=== PATIENT | male | born 1970 | race Caucasian/White ===

== ENCOUNTER 2016-10-26 04:28 | Inpatient (IN) | payer OTHER ==
[~2016-10-26] VITALS: Ht 175.3 cm; Wt 86.5 kg
[~2016-10-26 04:28] MED LIST: HYDR-902 PO; IBUP800T25 PO
[2016-10-26] MEDS ORDERED: SOD CHLORIDE 0.9% 1,000 ML IV STA (06:52)
[2016-10-26] MEDS ORDERED: KETOROLAC 15 MG INJ IV STA (06:52)
[2016-10-26] MEDS ORDERED: ONDANSETRON 4 MG INJ IV PRN ×3 (07:00→12:30)
[2016-10-26] MEDS ORDERED: ACETAMINOPHEN 325 MG TAB PO ONE (07:00)
[2016-10-26] MEDS ORDERED: morphine 4 MG/ML VIAL IV PRN (07:00)
--- NOTE | 2016-10-26 07:07 | ERA ---
ER Documentation Chief Complaint Date/Time DATE: 10/26/16 TIME: 06:59 Chief Complaint AP x10 days, Chronic Diarrhea, fever x10 days. [place] @2000 HPI 46-year-old male with no significant previous medical history ambulatory to the ED complaining of a one-week history of abdominal pain, diarrhea, body aches and fevers. He was well until approximately a week ago when he began to have body aches, fevers and generalized malaise. Subsequently developed profuse, watery, nonbloody, nonmucoid diarrhea approximately 3-4 times a day with occasional nighttime incontinence. Denies recent travel or spelled food exposure. Multiple family members with URI type viral illnesses moderate to severe, intermittent, sharp and crampy, nonradiating left lower quadrant pain. No pain now. No relieving or exacerbating factors. Denies dysuria, polyuria, hematuria or flank pain. No testicular pain or swelling. Denies chest pain or palpitations. No shortness of breath or cough. ROS All systems reviewed and are negative except as per history of present illness. Medications Home Meds Discontinued Scripts Hydrocodone/Acetaminophen ([place] 10-325 Tablet) 1 Each Tablet, 1 EACH PO TID, # 20 TAB Prov:GABY RICARDO PA-C 05/21/16 Ibuprofen* (Motrin*) 800 Mg Tab, 800 MG PO Q6, #30 TAB Prov:GABY RICARDO PA-C 05/21/16 Allergies Allergies: Coded Allergies: No Known Allergy (Unverified , 10/26/16) PMhx/Soc Reviewed in chart. As per HPI per History of Surgery: No Anesthesia Reaction: No Hx Neurological Disorder: No Hx Respiratory Disorders: No Hx Cardiac Disorders: No Hx Psychiatric Problems: No Hx Miscellaneous Medical Probl: No Hx Alcohol Use: No Hx Substance Use: No Hx Tobacco Use: No FmHx Father: of an CT at the age of 74. No family history of cancer or diabetes. Physical Exam Vitals Vital Signs Date Time Temp Pulse Resp B/P Pulse Ox O2 Delivery O2 Flow Rate FiO2 10/26/16 11:03 80 18 117/75 99 Room Air 10/26/16 06:17 100.9 95 16 140/89 98 Room Air 10/26/16 04:33 101.4 108 20 129/80 95 Physical Exam Const: Alert, no acute distress. Head: Atraumatic Eyes: Normal Conjunctiva. Anicteric. ENT: Normal External Ears, Nose and Mouth. Neck: Full range of motion. Nontender. Resp: Breath sounds are equal and clear to auscultation bilaterally Cardio: Regular rate and rhythm, no murmurs Abd: Soft, nontender, mild distention. No rebound or guarding. No masses or abnormal pulsations. Skin: No petechiae or rashes Back: No midline or CVA tenderness Ext: No cyanosis, or edema Neur: Awake and alert. Cranial nerves II through XII are grossly intact. No focal deficit observed. Psych: Normal Mood and Affect. The patient does not appear anxious or depressed. Result Diagram: 10/26/16 0710 10/26/16 0710 Results 24 hrs Laboratory Tests Test 10/26/16 07:10 10/26/16 08:05 Alanine Aminotransferase (ALT/SGPT) 83IU/L Albumin 3.9g/dl Albumin/Globulin Ratio 0.97 Alkaline Phosphatase 159IU/L Anion Gap 18 Aspartate Amino Transf (AST/SGOT) 58IU/L Basophils # 0.010^3/ul Basophils % 0.1% Blood Urea Nitrogen 8mg/dl Calcium Level 9.1mg/dl Carbon Dioxide Level 27mmol/L Chloride Level 99mmol/L Creatinine 0.94mg/dl Direct Bilirubin 0.00mg/dl Eosinophils # 0.110^3/ul Eosinophils % 0.8% Globulin 4.00g/dl Glucose Level 108mg/dl Hematocrit 40.6% Hemoglobin 14.2g/dl Indirect Bilirubin 0.2mg/dl Lipase 64U/L Lymphocytes # 0.710^3/ul Lymphocytes % 9.3% Mean Corpuscular Hemoglobin 31.3pg Mean Corpuscular Hemoglobin Concent 34.9g/dl Mean Corpuscular Volume 89.6fl Mean Platelet Volume 8.3fl Monocytes # 0.910^3/ul Monocytes % 11.5% Neutrophils # 5.910^3/ul Neutrophils % 78.3% Nucleated Red Blood Cells # 0.010^3/ul Nucleated Red Blood Cells % 0.0/100WBC Platelet Count 03496^3/UL Potassium Level 3.8mmol/L Red Blood Count 4.5410^6/ul Red Cell Distribution Width 13.2% Sodium Level 140mmol/L Total Bilirubin 0.2mg/dl Total Protein 7.9g/dl White Blood Count 7.510^3/ul Urine Bacteria FEW Urine Bilirubin NEGATIVE Urine Clarity CLEAR Urine Color YELLOW Urine Epithelial Cells FEW Urine Glucose NEGATIVE% Urine Hemoglobin 3+ Urine Ketones NEGATIVE Urine Leukocyte Esterase NEGATIVE Urine Microscopic RBC >200/HPF Urine Microscopic WBC 2-5/HPF Urine Nitrite NEGATIVE Urine Specific [place] 1.010 Urine Total Protein TRACE Urine Urobilinogen 2.0 E.U./dL Urine pH 7.0 Current Medications Medications (Trade) Dose Ordered Sig/Tran Route PRN Reason Start Time Stop Time Status Last Admin Dose Admin Sodium Chloride (NS) 1,000 ml @ 1,000 mls/hr Q1H STAT IV 10/26/16 06:52 10/26/16 07:51 DC 10/26/16 07:11 Morphine Sulfate (morphine) 4 mg ONCE PRN IV Pain 10/26/16 07:00 10/26/16 07:16 Ondansetron HCl (Zofran Inj) 4 mg ONCE PRN IV Nausea 10/26/16 07:00 10/26/16 07:16 Ketorolac Tromethamine (Toradol) 15 mg ONCE STAT IV 10/26/16 06:52 10/26/16 07:00 DC 10/26/16 07:11 Acetaminophen (Tylenol Tab) 650 mg ONCE ONCE PO 10/26/16 07:00 10/26/16 07:01 DC 10/26/16 07:11 IV Flush 10 ml 10 ml STK-MED ONCE .ROUTE 10/26/16 08:26 10/26/16 08:27 DC Sodium Chloride (NS) 100 ml @ ud STK-MED ONCE .ROUTE 10/26/16 08:26 10/26/16 08:27 DC Iohexol 150 ml 150 ml STK-MED ONCE .ROUTE 10/26/16 08:26 10/26/16 08:27 DC Ceftriaxone Sodium 50 ml @ 100 mls/hr ONCE ONCE IVPB 10/26/16 10:00 10/26/16 10:29 DC 10/26/16 10:08 Azithromycin (Zithromax 500mg/ NS (Pmx)) 250 ml @ 250 mls/hr ONCE ONCE IVPB 10/26/16 10:00 10/26/16 10:59 DC 10/26/16 11:02 Ondansetron HCl (Zofran Inj) 4 mg BRIDGE ORDER PRN IV NAUSEA AND/OR VOMITING 10/26/16 11:30 10/27/16 11:29 Acetaminophen (Tylenol Tab) 650 mg ER BRIDGE PRN PO MILD PAIN/FEVER 10/26/16 11:30 10/27/16 11:29 IMAGING: PROCEDURE: CT of the abdomen and pelvis CLINICAL INDICATION: Abdominal pain TECHNIQUE: The study was performed utilizing a GE [employer] 64-slice multidetector CT scanner. Direct spiral axial sections were obtained through the abdomen and pelvis with intravenous contrast. After administration of 85 cc of Omnipaque-300, postcontrast images were obtained. Coronal and sagittal reformatted images were performed. The CTDI vol is 10.92 mGy and the DLP is 672.25 mGy-cm. The images were reviewed on a PACS workstation. COMPARISON: No prior studies are available for comparison. FINDINGS: CT abdomen: Dense consolidation in the right lower lobe is seen with a small focal area of consolidation in the left lower lobe. The heart is not enlarged. No pleural or pericardial effusion is seen. The liver is mildly enlarged measuring 19.6 cm in size. No focal liver lesions or intrahepatic biliary dilatation is seen. The gallbladder is normal. No common bile duct dilatation is seen. The spleen measures 4.9 cm. The spleen, pancreas, and adrenal glands are otherwise unremarkable in appearance. The kidneys are normal in size and contour enhance normally. A 2 mm nonobstructing stone is seen in the lower pole of the right kidney. No evidence of hydronephrosis or nephrolithiasis is seen. The stomach is unremarkable. The small and large bowel are unremarkable in course and caliber. A normal appendix is identified. No enlarged lymph nodes or fluid collections are seen. The aorta is normal in caliber. CT pelvis: No pelvic mass, adenopathy, or focal fluid collection is seen. There is no free fluid. The urinary bladder is normal. The pelvic organs are unremarkable. No osseous lesions are seen. Degenerative changes in the lower lumbar spine are seen. IMPRESSION: 1. Dense consolidation in the right lower lobe with a small focal area consolidation left lower lobe consistent with pneumonia. Continued chest x-ray follow-up until complete resolution is recommended. 2. Mild hepatosplenomegaly 3. 2 mm nonobstructing right renal stone. RPTAT: HPNM Physician Jazmin Date Time Electronically viewed and signed by Physician Jazmin on 10/26/2016 08 :51 / PROCEDURE: XR Chest. CLINICAL INDICATION: Femur and stomach pains. TECHNIQUE: Single frontal view of the chest was obtained COMPARISON: CT scan abdomen pelvis 10/26/2016. FINDINGS: There are infiltrates in the right lower lobe. The heart is upper limits of normal for size. The less aorta pulmonary vasculature and pleural spaces are normal. IMPRESSION: 1. Right lower lobe pneumonia. RPTAT:AAJJ Jose Robles Physician Date Time Electronically viewed and signed by Physician Singh on 10/26/2016 09:50 JM/ Procedures/MDM DOCUMENTS REVIEWED: ED nurse prior ED ED COURSE: IV saline lock. Normal saline 1 L. Tylenol 650 mg orally and Toradol 15 mg IV. Rocephin 1 g IV piggyback/azithromycin 1 g IV piggyback MEDICAL DECISION MAKIN-year-old male with no significant previous medical history ambulatory to the ED complaining of a one-week history of abdominal pain , diarrhea, body aches and fevers. CT of the abdomen and pelvis unremarkable for intra-abdominal pathology except for nonobstructing right ureteral stone which is not consistent with the patient's presentation as his pain is mostly on the left but does show right lower lobe infiltrate was confirmed by chest x- ray. He has no respiratory symptoms or cough. Presentation suspicious for Legionella especially considering his elevated LFTs. Patient be admitted to [facility] for further evaluation and management. Counseled patient and family regarding diagnostic workup, diagnosis and need for followup. Understands to return to ED if symptoms recur, worsen or any other concerns. Departure Diagnosis: Primary Impression: Right lower lobe pneumonia Qualified Code: J18.9 - Pneumonia of right lower lobe due to infectious organism Condition: Serious BILLY BALDERRAMA MD Oct 26, 2016 07:07
[2016-10-26 07:38] LABS: BASOPHILS % 0.1 % (0.0-2.0); EOSINOPHILS # 0.1 10^3/ul (0.0-0.5); EOSINOPHILS % 0.8 % (0.0-7.0); HEMATOCRIT 40.6 % (42.0-52.0); HEMOGLOBIN 14.2 g/dl (14.0-18.0); LYMPHOCYTES # 0.7 10^3/ul (0.8-2.9); LYMPHOCYTES % 9.3 % (15.0-51.0); MEAN CORPUSCULAR HEMOGLOBIN 31.3 pg (29.0-33.0); MEAN CORPUSCULAR HGB CONC 34.9 g/dl (32.0-37.0); MEAN CORPUSCULAR VOLUME 89.6 fl (82.0-101.0); MEAN PLATELET VOLUME 8.3 fl (7.4-10.4); MONOCYTE # 0.9 10^3/ul (0.3-0.9); MONOCYTES % 11.5 % (0.0-11.0); NEUTROPHIL # 5.9 10^3/ul (1.6-7.5); NEUTROPHILS % 78.3 % (39.0-77.0); PLATELET COUNT 249 10^3/UL (140-440); RED BLOOD COUNT 4.54 10^6/ul (4.70-6.10); RED CELL DISTRIBUTION WIDTH 13.2 % (11.5-14.5); UNCORRECTED WBC 7.5 10^3/ul (4.8-10.8); WHITE BLOOD COUNT 7.5 10^3/ul (4.8-10.8)
[2016-10-26 07:55] LABS: CONDITION 1
[2016-10-26 07:59] LABS: ALBUMIN 3.9 g/dl (3.3-4.9)
[2016-10-26 08:00] LABS: POTASSIUM 3.8 mmol/L (3.5-5.1)
[2016-10-26 08:02] LABS: ALBUMIN/GLOBULIN RATIO 0.97; BILIRUBIN,INDIRECT 0.2 mg/dl (0-1.1); BILIRUBIN,TOTAL 0.2 mg/dl (0.2-1.3); CREATININE 0.94 mg/dl (0.61-1.24); TOTAL PROTEIN 7.9 g/dl (6.1-8.1)
[2016-10-26 08:03] LABS: CALCIUM 9.1 mg/dl (8.4-10.2)
[2016-10-26] MEDS ORDERED: IOHEXOL 300MG/ML 150 ML BTL ONE (08:26)
[2016-10-26] MEDS ORDERED: SOD CHLORIDE 0.9% 100 ML ONE (08:26)
[2016-10-26 08:31] LABS: ADD UMIC YES; URINE BILIRUBIN (Dip) NEGATIVE (NEGATIVE); URINE BLOOD (Dip) 3+ (NEGATIVE); URINE COLOR YELLOW (YELLOW); URINE GLUCOSE (Dip) NEGATIVE (NEGATIVE); URINE KETONES (Dip) NEGATIVE (NEGATIVE); URINE LEUKOCYTE ESTERASE (Dip) NEGATIVE (NEGATIVE); URINE NITRITE (Dip) NEGATIVE (NEGATIVE); URINE TOTAL PROTEIN (Dip) TRACE (NEGATIVE); URINE UROBILINOGEN (Dip) 2.0 E.U./dL (0.1-1.0)
[2016-10-26 08:45] LABS: BACTERIA,URINE FEW; URINE RBCS >200 /HPF (0)
--- NOTE | 2016-10-26 08:51 | RADRPT ---
PROCEDURE: CT of the abdomen and pelvis CLINICAL INDICATION: Abdominal pain TECHNIQUE: The study was performed utilizing a GE [employer] 64-slice multidetector CT scanner. Dir ect spiral axial sections were obtained through the abdomen and pelvis with intravenous contrast. Af ter administration of 85 cc of Omnipaque-300, postcontrast images were obtained. Coronal and sagitt al reformatted images were performed. The CTDI vol is 10.92 mGy and the DLP is 672.25 mGy-cm. The i mages were reviewed on a PACS workstation. COMPARISON: No prior studies are available for comparison. FINDINGS: CT abdomen: Dense consolidation in the right lower lobe is seen with a small focal area of consolida tion in the left lower lobe. The heart is not enlarged. No pleural or pericardial effusion is seen . The liver is mildly enlarged measuring 19.6 cm in size. No focal liver lesions or intrahepatic bili rae dilatation is seen. The gallbladder is normal. No common bile duct dilatation is seen. The sple en measures 4.9 cm. The spleen, pancreas, and adrenal glands are otherwise unremarkable in appearan ce. The kidneys are normal in size and contour enhance normally. A 2 mm nonobstructing stone is see n in the lower pole of the right kidney. No evidence of hydronephrosis or nephrolithiasis is seen. The stomach is unremarkable. The small and large bowel are unremarkable in course and caliber. A n ormal appendix is identified. No enlarged lymph nodes or fluid collections are seen. The aorta is n ormal in caliber. CT pelvis: No pelvic mass, adenopathy, or focal fluid collection is seen. There is no free fluid. The urinary bladder is normal. The pelvic organs are unremarkable. No osseous lesions are seen. De generative changes in the lower lumbar spine are seen. IMPRESSION: 1. Dense consolidation in the right lower lobe with a small focal area consolidation left lower lob e consistent with pneumonia. Continued chest x-ray follow-up until complete resolution is recommend ed. 2. Mild hepatosplenomegaly 3. 2 mm nonobstructing right renal stone. RPTAT: HPNM Dusty Fernandes Physician Date Time Electronically viewed and signed by Dusty Fernandes, Physician on 10/26/2016 08:51 /
--- NOTE | 2016-10-26 09:50 | RADRPT ---
PROCEDURE: XR Chest. CLINICAL INDICATION: Femur and stomach pains. TECHNIQUE: Single frontal view of the chest was obtained COMPARISON: CT scan abdomen pelvis 10/26/2016. FINDINGS: There are infiltrates in the right lower lobe. The heart is upper limits of normal for size. The l ess aorta pulmonary vasculature and pleural spaces are normal. IMPRESSION: 1. Right lower lobe pneumonia. RPTAT:AAJJ Physician Singh Date Time Electronically viewed and signed by Jose Robles Physician on 10/26/2016 09:50 NEDA/
[2016-10-26] MEDS ORDERED: AZITHROMYCIN 500MG/NS (PMX) 250 ML IVPB ONE (10:00)
[2016-10-26] MEDS ORDERED: CEFTRIAXONE 1 GM/50 ML (PMX) 50 ML IVPB ONE (10:00)
[2016-10-26] MEDS ORDERED: ACETAMINOPHEN 325 MG TAB PO PRN (11:30)
[2016-10-26] MEDS ORDERED: HYDROCODONE/APAP (5/325) TAB PO PRN (12:30)
[2016-10-26] MEDS ORDERED: morphine 2 MG INJ IV PRN (12:30)
[2016-10-26] MEDS ORDERED: BISACODYL 10 MG SUPP PR PRN (12:30)
[2016-10-26] MEDS ORDERED: DOCUSATE SODIUM 100 MG CAP PO PRN (12:30)
[2016-10-26] MEDS ORDERED: NACL 0.9% 3 ML SYG IV SCH (12:30)
[2016-10-26] MEDS ORDERED: ACETAMINOPHEN 650 MG SUPP PR PRN (12:30)
[2016-10-26] MEDS ORDERED: MAGNESIUM HYDROXIDE 30ML CUP PO PRN (12:30)
--- NOTE | 2016-10-26 12:48 | HP ---
Date/Time of Note Date/Time of Note DATE: 10/26/16 TIME: 12:42 Assessment/Plan VTE Prophylaxis VTE Prophylaxis Intervention: SCD's Assessment/Plan Chief Complaint/Hosp Course Assessment and plan 1. Right lower lung lobe pneumonia. Continue antibiotics. Follow-up chest radiograph to assess for resolution 2. Abdominal pain. Patient was CT scan of the abdomen with acute intra- abdominal pathology. We'll follow-up on stool cultures. Analgesics as needed. We 'll provide with IV hydration. 3. Febrile secondary to #1. Antipyretics as needed 4. Mild transaminitis. Etiology unknown. Follow up on hepatitis panel. Admission process time is 40 minutes Discussed plan of care with Dr. Tucker Problems: HPI/ROS Admit Date/Time Admit Date/Time Hx of Present Illness This is a 46-year-old male with no past medical history who came to [facility] due to reports of abdominal pain with associated nonbloody diarrhea. Patient did report that his symptoms started about a week ago with abdominal pain on the left lower quadrant. He reports having subjective fevers and body aches. He did report having one sick contact being his son who had upper respiratory infection symptoms. Patient denied any chest pain or shortness of breath associated with his own symptoms. Due to worsening abdominal pain he came to [facility] for further evaluation. Upon further examination he did have chest x-ray that did show Findings consistent with right lower lobe pneumonia. Additionally patient also did have CT scan of his abdomen for his abdominal pain that did show dense consolidation in the right lower lobe with a small focal area consolidation of left lower lobe consistent with pneumonia. There is only seen mild hepatosplenomegaly and a 2 mm nonobstructing right renal stone. He was found to be febrile with temperature 101.4. No leukocytosis noted. He also had some mild transaminitis seen on his chemistry. Currently the patient remains alert and oriented. He does reports of having sharp left lower quadrant abdominal pain nonradiating. He still reports having diarrhea. We will evaluate him for the aforementioned issues. ROS 12 point review of systems obtained and entirely negative except that mentioned in history of present illness PMH/Family/Social Past Medical History Medical History: no pertinent history Exam/Review of Systems Vital Signs Vitals Vital Signs Date Time Temp Pulse Resp B/P Pulse Ox O2 Delivery O2 Flow Rate FiO2 10/26/16 11:03 80 18 117/75 99 Room Air 10/26/16 06:17 100.9 Exam Exam General: No acute signs or symptoms of distress Eyes: pupils equal round, Anicteric sclera Neck: Supple nontender, no JVD Cardiac: S1, S2 auscultated, regular rhythm and rate Pulmonary: No coarse rhonchi or breathing auscultated GI: Minimally tender upon palpation of left lower abdomen Extremities: No edema bilateral lower extremities Skin: Clean dry and intact Neurologic: Alert to person place and time and situation Labs Result Diagram: 10/26/16 0710 10/26/16 0710 Medications Medications Current Medications Morphine Sulfate (morphine) 4 mg ONCE PRN IV Pain Last administered on t 07:16; Admin Dose 4 MG; Start 10/26/16 at 07:00 Ondansetron HCl (Zofran Inj) 4 mg Q6H PRN IV NAUSEA AND/OR VOMITING; Start at 12:30 Acetaminophen (Tylenol Tab) 650 mg Q6H PRN PO PAIN LEVEL 1-3 OR FEVER; Start at 12:30 Acetaminophen (Tylenol Supp) 650 mg Q6H PRN [place] PAIN LEVEL 1-3 OR FEVER; Start 10/26/16 at 12:30 Acetaminophen/ Hydrocodone Bitart ([place] (5/325)) 1 tab Q6H PRN PO MODERATE PAIN LEVEL 4-6; Start 10/26/16 at 12:30 Acetaminophen/ Hydrocodone Bitart ([place] (5/325)) 2 tab Q6H PRN PO SEVERE PAIN LEVEL 7-10; Start 10/26/16 at 12:30 Morphine Sulfate (morphine) 2 mg Q4H PRN IV SEVERE PAIN LEVEL 7-10; Start 10/26 at 12:30 Docusate Sodium (Colace) 100 mg Q12H PRN PO CONSTIPATION; Start 10/26/16 at 12: 30 Magnesium Hydroxide (Milk Of Mag) 30 ml DAILY PRN PO CONSTIPATION; Start at 12:30 Bisacodyl (Dulcolax Supp) 10 mg DAILY PRN [place] CONSTIPATION; Start 10/26/16 at 12 :30 Pantoprazole 40 mg 40 mg DAILY@06 IV ; Start 10/27/16 at 06:00 Azithromycin 250 ml @ 250 mls/hr DAILY IVPB ; Start 10/27/16 at 09:00 Ceftriaxone Sodium (Rocephin) 50 ml @ 100 mls/hr Q24H IVPB ; Start 10/27/16 at 09:00 CLARE FERNANDEZ Oct 26, 2016 12:47
[2016-10-26] MEDS: HYDROCODONE/APAP (5/325) TAB PO PRN (13:24)
[2016-10-26] MEDS: SOD CHLORIDE 0.9% 1,000 ML IV SCH ×2 (13:26→23:16)
[2016-10-26 14:09] LABS: HAAIG REFLEX REFLEX FILED
[2016-10-26] MEDS ORDERED: IBUPROFEN 600 MG TAB PO ONE (14:30)
[2016-10-26 15:13] LABS: HEPATITIS B CORE ANTIBODY NEGATIVE (NEGATIVE)
[2016-10-26 18:31] VITALS: TEMP 98.7
[2016-10-26 20:00] VITALS: BP 118/74; PULSE 80; RESP 20; Ht 175.3 cm; Wt 86.5 kg
[2016-10-26] MEDS: ACETAMINOPHEN 325 MG TAB PO PRN (20:14)
[2016-10-27] MEDS: HYDROCODONE/APAP (5/325) TAB PO PRN ×2 (00:28→21:08)
[2016-10-27] MEDS: PANTOPRAZOLE 40 MG INJ IV SCH (05:32)
[2016-10-27] MEDS: ACETAMINOPHEN 325 MG TAB PO PRN ×2 (06:25→16:38)
[2016-10-27 07:51] LABS: ALBUMIN 3.4 g/dl (3.3-4.9)
[2016-10-27 07:52] LABS: POTASSIUM 4.1 mmol/L (3.5-5.1)
[2016-10-27 07:54] LABS: BILIRUBIN,INDIRECT 0.2 mg/dl (0-1.1); BILIRUBIN,TOTAL 0.2 mg/dl (0.2-1.3); CREATININE 0.76 mg/dl (0.61-1.24); TOTAL PROTEIN 6.8 g/dl (6.1-8.1)
[2016-10-27 07:55] LABS: CALCIUM 8.9 mg/dl (8.4-10.2); PHOSPHORUS 2.8 mg/dl (2.5-4.9)
[2016-10-27 07:56] LABS: CHOL/HDL RATIO 5.9 RATIO
[2016-10-27 08:27] LABS: T3 UPTAKE 40.8 % (23.5-40.5)
[2016-10-27 08:29] VITALS: BP 119/72; RESP 16
[2016-10-27 08:41] LABS: THYROID STIMULATING HORMONE 0.643 MIU/L (0.465-4.680)
[2016-10-27] MEDS ORDERED: CEFTRIAXONE 2 GM INJ IVPB SCH (09:00)
[2016-10-27] MEDS: SOD CHLORIDE 0.9% 1,000 ML IV SCH ×2 (09:30→18:18)
[2016-10-27] MEDS: CEFTRIAXONE 2 GM/NS 50 ML IVPB SCH (10:43)
[2016-10-27] MEDS: AZITHROMYCIN 500MG/NS (PMX) 250 ML IVPB SCH (12:06)
[2016-10-27 13:00] VITALS: BP 119/72; PULSE 70; RESP 20
--- NOTE | 2016-10-27 19:30 | PN ---
Date/Time of Note Date/Time of Note DATE: 10/27/16 TIME: 19:27 Assessment/Plan VTE Prophylaxis VTE Prophylaxis Intervention: SCD's Lines/Catheters IV Catheter Type (from Nrs): Peripheral IV Assessment/Plan Chief Complaint/Hosp Course Assessment and plan 1. Right lower lung lobe pneumonia. Continue antibiotics. check chiropractic teacher in am 2. Abdominal pain. Patient was CT scan of the abdomen with acute intra- abdominal pathology.stool cultures pending 3. Febrile secondary to #1. Antipyretics as needed 4. Mild transaminitis. Etiology unknown. Follow up on hepatitis panel. DISPO/PLAN: cont abx. awaiting stool cultures. d/c when medically stable Discussed plan of care with Dr. Tucker Problems: Subjective 24 Hr Interval Summary Free Text/Dictation no s.s of distress. reports less abd pain Exam/Review of Systems Vital Signs Vitals Vital Signs Date Time Temp Pulse Resp B/P Pulse Ox O2 Delivery O2 Flow Rate FiO2 10/27/16 13:00 96.8 70 20 119/72 95 Room Air Intake and Output 10/26/16 10/26/16 10/27/16 15:00 23:00 07:00 Intake Total 1000 ml 2000 ml Balance 1000 ml 2000 ml Exam General: No acute signs or symptoms of distress Eyes: pupils equal round, Anicteric sclera Neck: Supple nontender, no JVD Cardiac: S1, S2 auscultated, regular rhythm and rate Pulmonary: No coarse rhonchi or breathing auscultated GI: bowel sounds active. Extremities: No edema bilateral lower extremities Skin: Clean dry and intact Neurologic: Alert to person place and time and situation Results Result Diagram: 10/26/16 0710 10/27/16 0605 Results 24 hrs Laboratory Tests Test 10/27/16 06:05 Alanine Aminotransferase (ALT/SGPT) 64 Albumin 3.4 Albumin/Globulin Ratio 1.00 Alkaline Phosphatase 133 H Anion Gap 16 Aspartate Amino Transf (AST/SGOT) 38 Blood Urea Nitrogen 6 L Calcium Level 8.9 Carbon Dioxide Level 29 Chloride Level 102 Cholesterol Level 113 Cholesterol/HDL Ratio 5.9 Creatinine 0.76 Direct Bilirubin 0.00 Free Thyroxine Index 3.51 Globulin 3.40 H Glucose Level 100 HDL Cholesterol 19 L Hemoglobin A1c 5.2 Indirect Bilirubin 0.2 LDL Cholesterol, Calculated 77 Magnesium Level 2.0 Phosphorus Level 2.8 Potassium Level 4.1 Sodium Level 143 Thyroid Stimulating Hormone (TSH) 0.643 Thyroxine (T4) 8.6 Total Bilirubin 0.2 Total Protein 6.8 # Triglycerides Level 83 Triiodothyronine (T3) Uptake 40.8 H Medications Medications Current Medications Morphine Sulfate (morphine) 4 mg ONCE PRN IV Pain Last administered on 07:16; Admin Dose 4 MG; Start 10/26/16 at 07:00 Ondansetron HCl (Zofran Inj) 4 mg Q6H PRN IV NAUSEA AND/OR VOMITING; Start at 12:30 Acetaminophen (Tylenol Tab) 650 mg Q6H PRN PO PAIN LEVEL 1-3 OR FEVER Last administered on 10/27/16 16:38; Admin Dose 650 MG; Start 10/26/16 at 12:30 Acetaminophen (Tylenol Supp) 650 mg Q6H PRN [place] PAIN LEVEL 1-3 OR FEVER; Start 10/26/16 at 12:30 Acetaminophen/ Hydrocodone Bitart ([place] (5/325)) 1 tab Q6H PRN PO MODERATE PAIN LEVEL 4-6 Last administered on 10/27/16 00:28; Admin Dose 1 TAB; Start at 12:30 Acetaminophen/ Hydrocodone Bitart ([place] (5/325)) 2 tab Q6H PRN PO SEVERE PAIN LEVEL 7-10; Start 10/26/16 at 12:30 Morphine Sulfate (morphine) 2 mg Q4H PRN IV SEVERE PAIN LEVEL 7-10; Start 10/26 at 12:30 Docusate Sodium (Colace) 100 mg Q12H PRN PO CONSTIPATION; Start 10/26/16 at 12: 30 Magnesium Hydroxide (Milk Of Mag) 30 ml DAILY PRN PO CONSTIPATION; Start at 12:30 Bisacodyl (Dulcolax Supp) 10 mg DAILY PRN [place] CONSTIPATION; Start 10/26/16 at 12 :30 Pantoprazole 40 mg 40 mg DAILY@06 IV Last administered on 10/27/16 05:32; Admin Dose 40 MG; Start 10/27/16 at 06:00 Azithromycin 250 ml @ 250 mls/hr DAILY IVPB Last administered on 10/27/16 12: 06; Admin Dose 250 MLS/HR; Start 10/27/16 at 09:00 Ceftriaxone Sodium 50 ml @ 100 mls/hr Q24H IVPB Last administered on 10:43; Admin Dose 100 MLS/HR; Start 10/27/16 at 09:00 Sodium Chloride (NS) 1,000 ml @ 100 mls/hr Q10H IV Last administered on 18:18; Admin Dose 100 MLS/HR; Start 10/26/16 at 13:00 CLARE FERNANDEZ Oct 27, 2016 19:30
[2016-10-27 20:16] VITALS: BP 108/68; RESP 18
[2016-10-28] MEDS: SOD CHLORIDE 0.9% 1,000 ML IV SCH ×2 (03:47→15:17)
[2016-10-28] MEDS: ACETAMINOPHEN 325 MG TAB PO PRN ×2 (03:53→17:15)
[2016-10-28 05:39] LABS: POTASSIUM 3.9 mmol/L (3.5-5.1)
[2016-10-28 05:41] LABS: CREATININE 0.67 mg/dl (0.61-1.24)
[2016-10-28 05:42] LABS: CALCIUM 8.7 mg/dl (8.4-10.2)
[2016-10-28] MEDS: PANTOPRAZOLE 40 MG INJ IV SCH (05:48)
[2016-10-28 06:41] LABS: BASOPHILS % 0.3 % (0.0-2.0); EOSINOPHILS # 0.2 10^3/ul (0.0-0.5); EOSINOPHILS % 2.8 % (0.0-7.0); HEMATOCRIT 35.9 % (42.0-52.0); HEMOGLOBIN 12.5 g/dl (14.0-18.0); LYMPHOCYTES # 1.1 10^3/ul (0.8-2.9); LYMPHOCYTES % 18.2 % (15.0-51.0); MEAN CORPUSCULAR HEMOGLOBIN 31.4 pg (29.0-33.0); MEAN CORPUSCULAR HGB CONC 34.8 g/dl (32.0-37.0); MEAN CORPUSCULAR VOLUME 90.1 fl (82.0-101.0); MEAN PLATELET VOLUME 7.8 fl (7.4-10.4); MONOCYTE # 0.6 10^3/ul (0.3-0.9); NEUTROPHIL # 4.4 10^3/ul (1.6-7.5); NEUTROPHILS % 69.7 % (39.0-77.0); PLATELET COUNT 271 10^3/UL (140-440); RED BLOOD COUNT 3.98 10^6/ul (4.70-6.10); RED CELL DISTRIBUTION WIDTH 13.4 % (11.5-14.5); UNCORRECTED WBC 6.3 10^3/ul (4.8-10.8); WHITE BLOOD COUNT 6.3 10^3/ul (4.8-10.8)
[2016-10-28 06:45] LABS: CONDITION 1
[2016-10-28 07:26] VITALS: BP 123/84; RESP 16
--- NOTE | 2016-10-28 07:49 | RADRPT ---
PROCEDURE: XR Chest. CLINICAL INDICATION: Shortness of breath. TECHNIQUE: Single frontal view. COMPARISON: 10/26/2016. FINDINGS: Previously noted right lower lobe pneumonia is improved. The lungs are otherwise clear. The heart size is normal. There is no pleural effusion. There is no pneumothorax. IMPRESSION: 1. Improved right lower lobe pneumonia. 2. Otherwise normal chest x-ray. RPTAT: QQ .Nelson Helms MD, MD Date Time Electronically viewed and signed by .Nelson Helms MD, MD on 10/28/2016 07:49 .R/
[2016-10-28] MEDS: CEFTRIAXONE 2 GM/NS 50 ML IVPB SCH (09:19)
[2016-10-28] MEDS: AZITHROMYCIN 500MG/NS (PMX) 250 ML IVPB SCH (10:10)
--- NOTE | 2016-10-28 12:15 | DS ---
Date/Time of Note Date/Time of Note DATE: 10/28/16 TIME: 12:01 Discharge Summary Admission/Discharge Info Admit Date/Time Oct 26, 2016 at 11:18 Discharge Date/Time Final Diagnosis 1. Community acquired pneumonia, improving, levaquin Patient Condition: Stable Hx of Present Illness This is a 46-year-old male with no past medical history who came to [facility] due to reports of abdominal pain with associated nonbloody diarrhea. Patient did report that his symptoms started about a week ago with abdominal pain on the left lower quadrant. He reports having subjective fevers and body aches. He did report having one sick contact being his son who had upper respiratory infection symptoms. Patient denied any chest pain or shortness of breath associated with his own symptoms. Due to worsening abdominal pain he came to [facility] for further evaluation. Upon further examination he did have chest x-ray that did show Findings consistent with right lower lobe pneumonia. Additionally patient also did have CT scan of his abdomen for his abdominal pain that did show dense consolidation in the right lower lobe with a small focal area consolidation of left lower lobe consistent with pneumonia. There is only seen mild hepatosplenomegaly and a 2 mm nonobstructing right renal stone. He was found to be febrile with temperature 101.4. No leukocytosis noted. He also had some mild transaminitis seen on his chemistry. Currently the patient remains alert and oriented. He does reports of having sharp left lower quadrant abdominal pain nonradiating. He still reports having diarrhea. We will evaluate him for the aforementioned issues. Hospital Course CXR and CT scan revealed right lower lobe infiltrates. Patient is on rocephin and zithromax for pneumonia. No fever after admission. He is discharged with 7 days levaquin. Patient had diarrhea on admission, no BM until this morning that he had one loose BM. Diarrhea is considered pneumonia/infection related. Home Meds Discontinued Scripts Hydrocodone/Acetaminophen ([place] 10-325 Tablet) 1 Each Tablet, 1 EACH PO TID, # 20 TAB Prov:GABY RICARDO PA-C 05/21/16 Ibuprofen* (Motrin*) 800 Mg Tab, 800 MG PO Q6, #30 TAB Prov:GABY RICARDO PA-C 05/21/16 Follow-up Plan follow up with PCP one week Pending Labs Laboratory Tests Test 10/28/16 04:45 Anion Gap 14 (8-16) Basophils # 0.010^3/ul (0.0-0.1) Basophils % 0.3% (0.0-2.0) Blood Urea Nitrogen 5mg/dl (7-20) Calcium Level 8.7mg/dl (8.4-10.2) Carbon Dioxide Level 26mmol/L (21-31) Chloride Level 106mmol/L (97-110) Creatinine 0.67mg/dl (0.61-1.24) Eosinophils # 0.210^3/ul (0.0-0.5) Eosinophils % 2.8% (0.0-7.0) Glucose Level 106mg/dl (70-220) Hematocrit 35.9% (42.0-52.0) Hemoglobin 12.5g/dl (14.0-18.0) Lymphocytes # 1.110^3/ul (0.8-2.9) Lymphocytes % 18.2% (15.0-51.0) Mean Corpuscular Hemoglobin 31.4pg (29.0-33.0) Mean Corpuscular Hemoglobin Concent 34.8g/dl (32.0-37.0) Mean Corpuscular Volume 90.1fl (82.0-101.0) Mean Platelet Volume 7.8fl (7.4-10.4) Monocytes # 0.610^3/ul (0.3-0.9) Monocytes % 9.0% (0.0-11.0) Neutrophils # 4.410^3/ul (1.6-7.5) Neutrophils % 69.7% (39.0-77.0) Nucleated Red Blood Cells # 0.010^3/ul (0.0-0.0) Nucleated Red Blood Cells % 0.0/100WBC (0.0-0.0) Platelet Count 44254^3/UL (140-440) Potassium Level 3.9mmol/L (3.5-5.1) Red Blood Count 3.9810^6/ul (4.70-6.10) Red Cell Distribution Width 13.4% (11.5-14.5) Sodium Level 142mmol/L (135-144) White Blood Count 6.310^3/ul (4.8-10.8) LESLEY DUNBAR MD Oct 28, 2016 12:15
[2016-10-28] MEDS ORDERED: LEVO500T72 PO (12:16)
[2016-10-29] MEDS ORDERED: PANTOPRAZOLE (EC) 40 MG TAB PO SCH (06:00)
== END 2016-10-28 17:48 | disposition home or self-care (01) | DRG 195 ==
LOC: E/R 04:28 → PP2 11:18
PROVIDERS: ADMIT Hospitalist; ATTEND Hospitalist
DX: J18.9 Pneumonia, unspecified organism (principal); R19.7 Diarrhea, unspecified; R10.32 Left lower quadrant pain; R74.0 Nonspecific elevation of levels of transaminase and lactic acid dehydrogenase [LDH]
CPT/HCPCS: 36415; 71010; 74177; 80048; 80053; 80061; 81001; 81003; 83036; 83690; 83735; 84100; 84436; 84443; 84479; 85025; 86704; 86709; 86713; 86803; 87040; 87045; 87075; 87338; 87340; 87400; 87449; 96361; 96374; 96375; C9113; J0456; J0696; J1885; J2270; J2405; J7030; Q9967